=== PATIENT | female | born 1945 ===

== ENCOUNTER 2018-08-18 09:27 | Outpatient (CLI) | payer MEDICARE | END 2018-08-18 09:28 | disposition home or self-care (01) | LOC: C.MAMMO 09:27 | DX: Z12.31 Encounter for screening mammogram for malignant neoplasm of breast (principal) ==

== ENCOUNTER 2018-09-11 11:51 | Outpatient (CLI) | payer MEDICARE | END 2018-09-11 11:52 | disposition home or self-care (01) | LOC: C.MAMMO 11:51 ==

== ENCOUNTER 2018-10-23 11:12 | Outpatient (CLI) | payer MEDICARE | END 2018-10-23 11:13 | disposition home or self-care (01) | LOC: C.USIC 11:12 | DX: R10.11 Right upper quadrant pain (principal); R10.13 Epigastric pain ==